=== PATIENT | female | born 1930 | race Native Hawaiian/Other Pacific Islander ===

== ENCOUNTER 2017-02-07 09:12 | Outpatient (CLI) | payer OTHER, MEDICARE ==
[~2017-02-07 09:12] MED LIST: CELEBREX200 MG PO; CIPRO500 MG PO; CORICIDI1 OR; FLUT0.05 NAS; NEXIUM40 M1 PO; TRIM800T12 PO
[2017-02-07 09:31] LABS: PLATELET COUNT 229 K/uL (152-353)
[2017-02-07 09:53] LABS: SODIUM 142 mmol/L (136-145)
== END 2017-02-07 19:25 | disposition home or self-care (01) ==
LOC: LABW 09:12
PROVIDERS: Internal Medicine
DX: I10 Essential (primary) hypertension (principal)
CPT/HCPCS: 36415; 80053; 80061; 81000; 84439; 84443; 85027

== ENCOUNTER 2018-01-27 08:22 | Outpatient (CLI) | payer OTHER, MEDICARE ==
[2018-01-27 09:59] LABS: PLATELET COUNT 211 K/uL (152-353)
[2018-01-27 10:35] LABS: POTASSIUM 4.7 mmol/L (3.6-5.2)
== END 2018-01-27 22:02 | disposition home or self-care (01) ==
LOC: LABW 08:22
PROVIDERS: Internal Medicine
DX: I10 Essential (primary) hypertension (principal); R82.99 Other abnormal findings in urine
CPT/HCPCS: 36415; 80053; 80061; 81000; 84439; 84443; 85027; 87086; 87088